=== PATIENT | male | born 1990 | race Caucasian/White ===

== ENCOUNTER 2023-03-19 09:27 | Emergency (ER) | payer OTHER, SELFPAY ==
--- NOTE | 2023-03-19 09:32 | ED.GENADUL1 ---
HPI - General Adult General Chief complaint: Upper Respiratory Infection Stated complaint: PINK EYE Time Seen by Provider: 03/19/23 09:32 Mode of arrival: walk-in History of Present Illness HPI narrative: She presents emergency department, and a cough. Patient states she's had a cough for 6 days. Yesterday she developed a fever. He took Motrin this morning. He states symptoms started with left eye erythema. He has been on some Ciloxan abdominal drops and later was told he maybe had an eyelid infection also so he has been adding erythromycin ointment to the left eye. He denies any blurred vision. The eye remains hyperemic. He denies any headache. He has a history of hypertension. He takes amlodipine and losartan. He has also been taking omeprazole [id number] but discontinued it thinking that that has something to do with the cough. Patient denies any wheezing. He has no history of lung disease. He denies any nausea, vomiting, diarrhea, constipation, abdominal pain. He denies any flank pain, hematuria, dysuria. Related Data Home Medications Medication Instructions Recorded Confirmed amlodipine 10 mg tablet 10 mg PO DAILY 03/19/23 03/19/23 losartan 25 mg tablet 25 mg PO DAILY 03/19/23 03/19/23 Previous Rx's Medication Instructions Recorded albuterol sulfate 90 mcg/actuation 2 inh inhalation Q4H PRN shortness 03/19/23 aerosol inhaler of breath or wheezing #8.5 grams methylprednisolone 4 mg tablets in 4 mg PO DAILY #21 ea 03/19/23 a dose pack (Medrol (Simba)) Allergies Allergy/AdvReac Type Severity Reaction Status Date / Time No Known Drug Allergies Allergy Verified 03/19/23 09:37 Review of Systems ROS Status of ROS 10 or more systems reviewed and unremarkable except as noted in history and below [facility] Social History Smoking status: Never smoker Exam Narrative Exam Narrative: Nurses notes and vital signs reviewed and patient is not hypoxic. General: Nontoxic, Well-appearing and in no apparent distress. Skin: Warm, dry, no pallor noted. No Rash Head: Normocephalic, atraumatic. Neck: Supple, non-tender. Eye: Pupils are equal, round and EOMI. No scleral icterus. Hyperemic conjunctiva, no signs of iritis. Subconjunctival hemorrhage noted, no hypopyon, no pre-or post-septal cellulitis. Ears, Nose, Mouth, and Throat: TM clear, posterior oropharynx erythema, no nasal mucosal hypertrophy, uvula is mid-line Oral mucosa is moist Cardiovascular: Regular Rate and Rhythm without murmur, gallop or rub. Respiratory: No accessory muscle use or respiratory distress. Lungs no wheezing, right mid lung rhonchi Chest Wall: no tenderness Back: No midline thoracic or lumbar vertebral tenderness. No CVA tenderness Musculoskeletal: normal ROM, no calf or popliteal tenderness, no lower extremity edema/swelling GI: Abdomen is soft, non-distended. Normal bowel sounds. No masses appreciated. No tenderness to palpation. No rebound, guarding, or rigidity noted. Neurological: A&O x4. No cranial nerve dysfunction observed. No truncal ataxia. Moves all extremities. Sensation intact. Psychiatric: Cooperative and interactive. Normal mood and affect. Constitutional Vital Signs - 24 hr 03/19/23 09:38 Temperature 97.7 F Pulse Rate [Monitor] 97 H Respiratory Rate 16 Blood Pressure [Right Arm] 121/81 H Pulse Oximetry 98 Oxygen Delivery Method Room Air Course Vital Signs Vital signs: Vital Signs Temperature 97.7 F 03/19/23 09:38 Pulse Rate 97 H 03/19/23 09:38 Respiratory Rate 16 03/19/23 09:38 Blood Pressure 121/81 H 03/19/23 09:38 Pulse Oximetry 98 03/19/23 09:38 Oxygen Delivery Method Room Air 03/19/23 09:38 Temperature 97.7 F 03/19/23 09:38 Pulse Rate 97 H 03/19/23 09:38 Respiratory Rate 16 03/19/23 09:38 Blood Pressure 121/81 H 03/19/23 09:38 Pulse Oximetry 98 03/19/23 09:38 Oxygen Delivery Method Room Air 03/19/23 09:38 Medical Decision Making Lab Data Labs: Lab Results 03/19/23 Range/Units 09:50 SARS-CoV-2 (PCR) Negative (NEGATIVE) Streptococcus Screen Negative Discharge Plan Discharge Chief Complaint: Upper Respiratory Infection Clinical Impression: Subconjunctival hemorrhage of left eye, Bronchitis Patient Disposition: Home, Self-Care Time of Disposition Decision: 10:29 Condition: Good Mode of Transportation: Private Vehicle Prescriptions / Home Meds: New methylprednisolone [Medrol (Simba)] 4 mg tablets,dose pack 4 mg PO DAILY Qty: 21 0RF albuterol sulfate 90 mcg/actuation HFA aerosol inhaler 2 inh inhalation Q4H PRN (Reason: shortness of breath or wheezing) Qty: 8.5 0RF No Action amlodipine 10 mg tablet 10 mg PO DAILY losartan 25 mg tablet 25 mg PO DAILY Instructions: Subconjunctival Hemorrhage (ED), Acute Bronchitis (ED) Stand Alone Forms: Portal Instructions Referrals: Physician,Non-Staff, [Primary Care Provider] - 1 week ASHOK ESCOBAR MD [Physician] - 1 week
[2023-03-19 09:38] VITALS: BP 121/81; PULSE 97; RESP 16; TEMP 36.5; O2SAT 98; BMI 32.7
--- NOTE | 2023-03-19 09:46 | XR_ITS ---
[address] [address] Patient Name: DAYNA PICKETT MRN: [id number] date: 1990 Sex: M Assigned Patient Location: ER Current Patient Location: ER Accession/Order Number: [id number] Exam Date: 03/19/2023 10:00 Report Date: 03/19/2023 10:19 At the request of: LISA FINK Procedure: XR chest 2V EXAMINATION: XR chest 2V HISTORY: cough COMPARISON: No relevant comparison available. TECHNIQUE: PA and lateral FINDINGS: LUNGS: No significant pulmonary parenchymal abnormalities. VASCULATURE: No increased pulmonary vasculature. PLEURA: No pneumothorax, effusion, or pleural thickening. CARDIAC: No cardiomegaly or cardiac silhouette abnormality. MEDIASTINUM: No visible mass or adenopathy. BONES: No fracture or visible bone lesion. OTHER: Negative. IMPRESSION: No acute cardiopulmonary process Electronically authenticated by: CATA DOW Date: 03/19/2023 10:19
[2023-03-19 10:06] LABS: Internal Control Within Normal Limits; Strep A Antigen Screen Negative
--- NOTE | 2023-03-19 10:09 | PC.NURSE ---
L eye conjunctivitis for 7 dayas , not getting better. has some blurred vision. L eye is completely blood shot. using prescribed topical ointment and eye drops
[2023-03-19 10:11] LABS: SARS-CoV-2 Ag NEGATIVE (NEGATIVE)
[2023-03-19 15:30] LABS: SARS-CoV-2 NAA NOT DETECTED (NOT DETECTE)
== END 2023-03-19 10:50 | disposition home or self-care (01) ==
PROVIDERS: Emergency Provider Emergency Medicine
DX: J40 Bronchitis, not specified as acute or chronic (principal); H11.32 Conjunctival hemorrhage, left eye; Z20.822 Contact with and (suspected) exposure to COVID-19
CPT/HCPCS: 71046; 87070; 87635; 87811; 87880; 99284; U0003